=== PATIENT | male | born 1960 | race Caucasian/White ===

== ENCOUNTER → 2024-11-25 09:38 | Outpatient (REF) | payer OTHER, SELFPAY | LOC: PAVMRI 09:38 | PROVIDERS: ATTENDING PHYSICIAN Physician Assistant Medical; FAMILY PHYSICIAN Family Medicine | DX: M76.892 Other specified enthesopathies of left lower limb, excluding foot (principal); Z47.89 Encounter for other orthopedic aftercare; Z96.642 Presence of left artificial hip joint | CPT/HCPCS: 73721 ==

== ENCOUNTER 2024-12-27 06:21 | Day surgery (SDC) | payer OTHER, SELFPAY | END 2024-12-27 12:10 | disposition home or self-care (01) | LOC: GI 06:21 | PROVIDERS: ATTENDING PHYSICIAN Internal Medicine Gastroenterology | DX: Z12.11 Encounter for screening for malignant neoplasm of colon (principal); K64.8 Other hemorrhoids; Z86.0100 Personal history of colon polyps, unspecified; K57.30 Diverticulosis of large intestine without perforation or abscess without bleeding; K63.5 Polyp of colon | CPT/HCPCS: 45380; 88305 ==